=== PATIENT | male | born 1965 | race African-American/Black ===

== ENCOUNTER 2017-06-24 01:32 | Observation (INO) ==
[2017-06-24] MEDS ORDERED: NITROGLYCERIN SL 0.4 MG TABLET SL STA (02:15)
[2017-06-24] MEDS ORDERED: ASPIRIN 325 MG TABLET PO STA (02:16)
[2017-06-24] MEDS ORDERED: NITROGLYCERIN SL 0.4 MG TABLET SL ONE (02:30)
[2017-06-24] MEDS ORDERED: ASPIRIN 325 MG TABLET ONE (02:30)
[2017-06-24 02:54] LABS: Basophils % 0.5 % (0.0-0.8); Eosinophils # 0.1 10*3/uL (0.0-0.87); Eosinophils % 2.4 % (0.00-10.9); Hematocrit 42.1 VOL% (42.0-52.0); Hemoglobin 13.8 GM/DL (14.0-18.0); Lymphocytes % 53.4 % (21.2-54.2); Mean Corpuscular HGB Conc 32.8 GM/DL (32-36); Mean Corpuscular Hemoglobin 28 PG (27-34); Mean Corpuscular Volume 86.3 FL (87-102); Mean Platelet Volume 10.4 FL (9.6-12.0); Monocytes # 0.3 10*3/uL (0.11-0.8); Monocytes % 7.8 % (1.7-12.7); Neutrophils # 1.3 10*3/uL (1.4-7.4); Neutrophils % 35.9 % (38.7-73.9); Platelet Count 205 T/CUMM (130-400); Red Blood Count 4.88 MC/CUMM (3.8-5.5); Red Cell Distribution Width 12.8 % (9.3-17.3); White Blood Count 3.7 T/CUMM (4-12)
[2017-06-24 03:09] LABS: Albumin 3.8 G/DL (3.4-5.0); Bilirubin,Total 0.4 MG/DL (0.2-1.0); Osmolality,Calculated 276.5 MOS/KG (273-304); Potassium 3.9 MMOL/L (3.5-5.1); Total Protein 6.6 G/DL (6.4-8.3)
[2017-06-24 03:26] LABS: Lymphocytes 61 % (20-55); Segmented Neutrophils 30 % (50-85); Total Cells Counted 100
[2017-06-24 03:32] LABS: Giant Platelets Few; Platelet Estimate Normal; Reactive Lymphocytes 1+
[2017-06-24 03:33] LABS: Ovalocytes 1+
[2017-06-24] MEDS ORDERED: ONDANSETRON 4 MG/2 ML VIAL IV PRN (05:20)
[2017-06-24] MEDS ORDERED: NITROGLYCERIN 2% OINT 1 INCH/GM PACK TOP SCH (06:00)
[2017-06-24 06:10] LABS: Risk Ratio 4.02; VLDL CHOLESTEROL 16.6 MG/DL
[2017-06-24 08:09] VITALS: BP 126/84
[2017-06-24] MEDS ORDERED: PANTOPRAZOLE 40 MG TABLET PO SCH (09:00)
[2017-06-24] MEDS ORDERED: ENOXAPARIN 40 MG/0.4 ML SYRINGE SUBCUT SCH (09:00)
[2017-06-24] MEDS ORDERED: ASPIRIN EC 81 MG TABLET PO SCH (09:00)
[2017-06-24] MEDS ORDERED: CELECOXIB 200 MG CAPSULE PO SCH (09:00)
[2017-06-24] MEDS ORDERED: FLUTICASONE 50 MCG NASAL SPRAY 16 GM BOTTLE BOTH NARES SCH (09:00)
[2017-06-24] MEDS ORDERED: ALPRAZolam 0.5 MG TABLET PO SCH (09:00)
[2017-06-24] MEDS ORDERED: ASPIRIN EC 325 MG TABLET PO SCH (09:00)
[2017-06-24] MEDS ORDERED: CETIRIZINE 10 MG TABLET PO SCH (21:00)
[2017-06-24] MEDS ORDERED: SIMVASTATIN 40 MG TABLET PO SCH (21:00)
== END 2017-06-24 10:22 | disposition home or self-care (01) ==
LOC: N.ED 01:32 → N.EDINP 01:32 → SUATTDRO 05:20 → N.CC 05:49
PROVIDERS: ADMIT Internal Medicine